=== PATIENT | female | born 1990 | race Caucasian/White ===

== ENCOUNTER 2020-11-14 07:56 | Inpatient (IN) ==
[2020-11-14] MEDS ORDERED: OXYTOCIN 30 UNITS/500 ML BAG IV PRN ×2 (08:58)
--- NOTE | 2020-11-14 08:58 | Labor Progress Brief Note ---
Date of Service November 14, 2020 Subjective Admit for IOL at 38w3d for cHTN not on medication, BP acceptable this AM and without s/sx of PIH. Assessment & Plan (1) Chronic hypertension: IOL for cHTN, start pitocin, AROM when able. Admission and Anticipated Discharge Date Admission Date: November 14, 2020 Physical Exam Physical Exam: /-2 FHT Cat 1 Christine irreg EFW 6-7lb Results & Data ([facility]) Vital Signs (Past 12 Hours) Vital Signs Temp Pulse Resp BP 11/14/20 08:47 95 H 125/83 11/14/20 08:27 107 H 130/87 11/14/20 08:20 98.6 F 107 H 18 130/87 Coding Level of Care Code None Diagnoses Chronic hypertension I10
[2020-11-14] MEDS: LACTATED RINGER'S 1,000 ML IV PRN ×2 (09:30→12:07)
--- NOTE | 2020-11-14 09:41 | History & Physical Report ---
Date of Service November 14, 2020 Assessment & Plan (1) : Isi Newby is a 29yo with cHTN at 38+3 who presents to L&D for IOL for cHTN. * Admit to L&D * IV site in place, labs ordered * Covid negative 11/08/20 * Pitocin per protocol * AROM when indicated * Anticipate * heart tracing: category 1 * BP currently 120/67, patient without signs/symptoms of preeclampsia, continue to monitor (2) Chronic hypertension: Admission and Anticipated Discharge Date Admission Date: November 14, 2020 History of Present Illness Primary Care Provider: Malcolm Dowell Isi Newby is a 29yo at 38+3 who presents to L&D for scheduled IOL for cHTN. She has a history of cHTN with superimposed preeclampsia. Has been taking daily baby aspirin since 12wga. Previously on propranolol and paxil but discontinued these before 12wga. NST yesterday was reactive with accels present, with one decel a/w movement noted. Reports good movement. Denies vaginal bleeding, ROM, leakage of fluid. Patient also denies fever, chills, CP, SOB, nausea, vomiting, lightheadedness, dizziness, headache, RUQ pain, changes in vision, or LE edema. Rh pos / RI / GBS neg / covid neg (11/08/20) Medical Lab Technologist: history of ASCUS in 2014, no STD history Allergies Allergy/AdvReac Type Severity Reaction Status Date / Time diphenhydramine Allergy Unknown Chills and Verified 11/13/20 11:50 anxiety promethazine AdvReac Intermediate JITTERY Verified 11/13/20 11:50 CANT SLEEP tramadol AdvReac Mild anxious Verified 11/13/20 11:50 Home Medications Medication Instructions Recorded Confirmed Type PNV 153-FA 400 mcg-om3 35 mg-dha tab PO 05/09/20 11/13/20 History 25 mg-epa 5 mg-fish oil chew tablet aspirin 81 mg PO DAILY 11/14/20 11/14/20 History Past Med/Surg History Medical History Abnormal Pap smear of cervix Anxiety and depression Chest pain Chronic hypertension Migraine headache (05/04/13) Mild pre-eclampsia, antepartum (12/22/11) Tonsillectomy planned Varicella vaccine Surgical History S/P cholecystectomy 2011 Family History Mother Thyroid disease Other Hypertension Social History (Updated 11/14/20 @ 08:43 by Joan Ocasio) Smoking Status: Former smoker Tobacco Type: Cigarettes Second Hand Exposure: Yes; Do You Dip or Chew Tobacco: No; Hx Alcohol Use: No Hx Substance Use: No Preferred Language: Nepalese Communication Ability: Effective Hearing Ability: Normal 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 Beliefs That Will Affect Care: None marital status: marital status details: Cindy Sherwood (29) [phone] Current Living Situation: Family Current Living Situation Comment: lives with spouse and children, 1 dog current occupational status: employed current occupation: [employer] Feels Safe at Home: Yes Safety Concerns: Feels Safe At This Time Dental Care, Regularly: Yes Do you think of yourself as: straight/heterosexual Assistive Devices: Glasses Review of Systems Review of Systems: see HPI Physical Exam Constitutional: healthy appearing, cooperative and comfortable; no acute distress Respiratory: normal respiratory effort, lungs clear to auscultation Cardiovascular: RRR, no murmur, no edema Gastrointestinal (Abdomen): normal gravid abdomen with heart monitor in place, abdomen soft, nontender Musculoskeletal: calves nontender bilaterally Results & Data Results [facility] ([facility]) Vital Signs (Past 12 Hours) Vital Signs Temp Pulse Resp BP 11/14/20 08:47 95 H 125/83 11/14/20 08:27 107 H 130/87 11/14/20 08:20 37 C 107 H 18 130/87 Resident Activity Tracking Resident Involvement: Resident Care Provided Care Provided: OB Delivery
[2020-11-14 09:52] LABS: Hemoglobin 10.9 g/dL (12.0-16.0); Mean Corpuscular Hemoglobin 29.7 pg (25-34); Mean Corpuscular Volume 89.9 fL (80-100); Mean Platelet Volume 9.8 fL (7.4-10.4); Platelet Count 182 K/uL (130-400); RDW Coefficient of Variation 11.9 % (11.5-14.5); RDW Standard Deviation 38.6 fL (36.4-46.3); Red Blood Count 3.67 M/uL (4.2-5.4); White Blood Count 8.11 K/uL (4.8-10.8)
[2020-11-14] MEDS ORDERED: SODIUM CHLORIDE 0.9% INJ 10 ML VIAL ONE (12:09)
[2020-11-14] MEDS ORDERED: BUPIVACAINE 0.25% 30 ML VIAL ONE (12:09)
[2020-11-14] MEDS ORDERED: ePHEDrine sulfate 50 MG/ML AMP ONE (12:09)
[2020-11-14] MEDS ORDERED: fentaNYL 2MCG/ML ROPIVACAINE 1.25MG/ML 100 ML BAG EPI ONE (12:10)
[2020-11-14] MEDS ORDERED: fentaNYL citrate 100 MCG/2 ML VIAL ONE (12:10)
[2020-11-14] MEDS ORDERED: NALOXONE HCL 1 MG in SODIUM CHLORIDE 0.9% 1000ML 1,000 ML IV PRN (12:17)
[2020-11-14] MEDS ORDERED: fentaNYL 2MCG/ML ROPIVACAINE 1.25MG/ML 100 ML BAG EPI PRN (12:17)
[2020-11-14] MEDS ORDERED: ONDANSETRON INJ 2 MG/ML 2 ML VIAL IV PRN (12:17)
[2020-11-14] MEDS ORDERED: ePHEDrine sulfate 50 MG/ML AMP IV PRN (12:17)
[2020-11-14] MEDS ORDERED: NALOXONE HCL 0.4 MG/1 ML VIAL/CARP IV PRN (12:17)
--- NOTE | 2020-11-14 12:19 | Anesthesiology Consultation ---
Date of Service November 14, 2020 Assessment & Plan (1) Encounter for pre-operative examination: Chart Review Chart Review: Patient NOT seen in Pre Admission Testing and Acceptable Risk for Labor Epidural Consults Requested none History Height/Weight Height: 5 ft 2 in Weight: 57.153 kg Allergies Allergy/AdvReac Type Severity Reaction Status Date / Time diphenhydramine Allergy Unknown Chills and Verified 11/13/20 11:50 anxiety promethazine AdvReac Intermediate JITTERY Verified 11/13/20 11:50 CANT SLEEP tramadol AdvReac Mild anxious Verified 11/13/20 11:50 Medications Home Medications Medication Instructions Recorded Confirmed Last Taken PNV 153-FA 400 mcg-om3 35 mg-dha tab PO 05/09/20 11/13/20 11/14/20 25 mg-epa 5 mg-fish oil chew tablet aspirin 81 mg PO DAILY 11/14/20 11/14/20 11/10/20 Active Medications Generic Name Dose Route Start Last Admin Trade Name Freq PRN Reason Stop Dose Admin Lactated Ringer's 1,000 mls @ 125 mls/hr 11/14/20 08:58 11/14/20 12:07 Lr IV 11/16/20 08:57 125 mls/hr .Q8H PRN Administration L&D Protocol Protocol Oxytocin 30 units in 500 mls @ 3 mls/hr 11/14/20 08:58 11/14/20 10:30 Pitocin IV 11/16/20 08:57 0.18 units/hr .Q24H PRN 3 mls/hr Labor Induction/Augmentation Titration Protocol 0.18 UNITS/HR Past Medical History Medical History (Updated 11/14/20 @ 12:18 by Florentin Brandon MD) Abnormal Pap smear of cervix Anxiety and depression Chest pain Chronic hypertension Migraine headache (05/04/13) Mild pre-eclampsia, antepartum (12/22/11) Tonsillectomy planned Varicella vaccine Exercise / Class Metabolic Activity II 4-5 Yardwork/Stairs/Walk up hill Past Family History Family History Mother Thyroid disease Other Hypertension Past Surgical History Surgical History S/P cholecystectomy 2011 Past Anesthesia History No Hx of Anesthesia Complications and No Family Hx of Anesthesia Complications History of PONV No Hx of PONV and No Hx of Motion Sickness Social History Smoking Status: Former smoker Do You Dip or Chew Tobacco: No Hx Alcohol Use: No Hx Substance Use: No substance use type: does not use Physical Exam Vital Signs Last Vital Signs Temp 36.8 C 11/14/20 12:02 Pulse 107 H 11/14/20 12:34 Resp 18 11/14/20 12:02 BP 133/68 11/14/20 12:34 Pulse Ox 97 11/14/20 12:34 Testing Laboratory Results 11/14/20 09:09
--- NOTE | 2020-11-14 13:59 | Labor Progress Brief Note ---
Date of Service November 14, 2020 Subjective Now comfortable with epidural except for L abdomen hot spot; currently L lateral hoping to fix that. Assessment & Plan (1) Chronic hypertension: Continue IOL. Admission and Anticipated Discharge Date Admission Date: November 14, 2020 Physical Exam Physical Exam: /-1 to 0 FHT Cat 1 [place] Q2 Pit @ 3 Results & Data ([facility]) Vital Signs (Past 12 Hours) Vital Signs Temp Pulse Resp BP Pulse Ox Pulse Ox 11/14/20 13:55 94 H 124/63 11/14/20 13:54 103 H 100 11/14/20 13:52 109 H 128/61 11/14/20 13:49 111 H 100 11/14/20 13:46 105 H 125/76 11/14/20 13:44 98 H 100 11/14/20 13:43 103 H 126/73 11/14/20 13:40 92 H 119/69 11/14/20 13:39 101 H 100 11/14/20 13:37 93 H 122/68 11/14/20 13:34 92 H 118/64 100 11/14/20 13:31 105 H 114/64 11/14/20 13:29 88 100 11/14/20 13:28 87 116/66 11/14/20 13:25 94 H 115/64 11/14/20 13:24 93 H 100 11/14/20 13:22 85 126/68 11/14/20 13:19 103 H 122/70 99 11/14/20 13:16 100 H 122/69 11/14/20 13:14 91 H 100 11/14/20 13:13 100 H 119/67 11/14/20 13:10 93 H 124/68 11/14/20 13:09 97 H 100 11/14/20 13:07 102 H 123/62 11/14/20 13:04 99 H 126/68 100 11/14/20 13:01 108 H 141/80 H 11/14/20 12:59 115 H 98 11/14/20 12:58 100 H 132/77 11/14/20 12:55 104 H 139/81 11/14/20 12:54 103 H 99 11/14/20 12:52 113 H 141/93 H 11/14/20 12:49 100 H 139/82 99 11/14/20 12:46 102 H 144/85 H 11/14/20 12:44 110 H 98 11/14/20 12:43 105 H 137/85 11/14/20 12:40 100 H 143/86 H 11/14/20 12:39 98 H 98 11/14/20 12:37 108 H 143/79 H 11/14/20 12:34 107 H 133/68 97 11/14/20 12:31 98 H 131/91 11/14/20 12:29 102 H 97 11/14/20 12:28 98 11/14/20 12:25 111 H 145/108 H 11/14/20 12:24 101 H 98 11/14/20 12:19 93 H 98 11/14/20 12:16 88 138/79 11/14/20 12:14 93 H 97 11/14/20 12:09 97 H 98 11/14/20 12:04 95 H 99 11/14/20 12:02 98.2 F 18 11/14/20 10:00 18 11/14/20 09:16 103 H 120/67 11/14/20 09:06 100 H 116/65 11/14/20 09:00 18 11/14/20 08:57 102 H 124/73 11/14/20 08:47 95 H 125/83 11/14/20 08:27 107 H 130/87 11/14/20 08:20 98.6 F 107 H 18 130/87 11/14/20 07:58 98.6 F 18 Coding Level of Care Code None Diagnoses Chronic hypertension I10
[2020-11-14] MEDS ORDERED: ACETAMINOPHEN 325 MG TAB PO PRN (15:45)
--- NOTE | 2020-11-14 16:55 | Delivery Summary ---
Vaginal Delivery Summary Date of Service November 14, 2020 Vaginal Delivery Summary DIAGNOSES: 1. Ramires intrauterine at 38w3d gestation. 2. Induction of labor due to Chronic Hypertension affecting . 3. Group B Streptococcus Neg. PROCEDURE: Spontaneous vaginal delivery without laceration. SURGEON: Wendy Johnson MD. BANK VAULT CLERK: None. ESTIMATED BLOOD LOSS: 250 mL. COMPLICATIONS: None. PLACENTA: Spontaneous and intact with a 3-vessel cord. DISPOSITION: Stable to labor and delivery. DESCRIPTION: The patient pushed well and brought the head to in OA position. The 's head was allowed to deliver with contraction force and no further active pushing, with the perineum protected during this time. The shoulders delivered easily with a maternal pushing effort. There was no nuchal cord. The right shoulder was anterior. The shoulders and body delivered without any difficulty, and the was placed on the maternal abdomen. It was vigorous and moving all extremities, and making respiratory efforts. Apgars were ultimately assigned as 9 and 10. The cord was doubly clamped by the MD and then cut by the FOB. The placenta delivered spontaneously and was noted to be intact and with a 3VC. The cervix, vagina and perineum were examined and were found to be without defect requiring repair. The fundus was firm and lochia minimal immediately after delivery. [facility] Vaginal Delivery Charge Vaginal Delivery Codes: 77721 global code for the antepartum, delivery, and post-
[2020-11-14] MEDS ORDERED: IBUPROFEN 600 MG TAB PO ONE (17:17)
--- NOTE | 2020-11-14 18:00 | Anesthesia Procedure Note ---
Date of Service November 14, 2020 Anesthesia Post Epidural Note Vital Signs Vital Signs: Temp Pulse Resp BP Pulse Ox 37.3 C 94 H 18 142/75 H 97 11/14/20 15:35 11/14/20 17:52 11/14/20 15:35 11/14/20 17:52 11/14/20 16:44 Pain Intensity Lower Abdomen: Pain Intensity: 0 Left Hip: Pain Intensity: 1 Notes Mental Status: alert / awake / arousable and participated in evaluation Nausea / Vomiting: adequately controlled Pain: adequately controlled Airway Patency, RR, SpO2: stable & adequate BP & HR: stable & adequate Hydration State: stable & adequate Neuraxial Anesthesia: was administered and sensory block is resolving Anesthetic Complications: no major complications apparent and Pt Satisfied with anesthetic care Epidural: Removed without complications and With tip intact
[2020-11-14] MEDS ORDERED: DIPHTHERIA/TETANUS/PERTUSSIS 0.5 ML SYR/VIAL IM ONE (18:40)
[2020-11-14] MEDS ORDERED: HYDROCORTISONE ACETATE 25 MG SUPP PR PRN (18:40)
[2020-11-14] MEDS ORDERED: BENZOCAINE 20% AER SPR 82.5 GM CAN EXT PRN (18:40)
[2020-11-14] MEDS ORDERED: oxyCODONE/ACETAMINOPHEN 5mg/325mg TAB PO PRN (18:40)
[2020-11-14] MEDS ORDERED: SUPERCREAM 0.870% 15 GM JAR EXT PRN (18:40)
[2020-11-14] MEDS: ACETAMINOPHEN 325 MG TAB PO PRN (19:43)
[2020-11-14] MEDS: DOCUSATE SODIUM 100 MG CAP PO SCH (20:38)
[2020-11-14] MEDS: IBUPROFEN 600 MG TAB PO PRN (23:23)
[2020-11-15] MEDS: IBUPROFEN 600 MG TAB PO PRN ×3 (04:33→15:09)
[2020-11-15] MEDS: ACETAMINOPHEN 325 MG TAB PO PRN ×3 (05:43→18:25)
--- NOTE | 2020-11-15 06:26 | Obstetrical Progress Note ---
Date of Service <Chris Bean MD - Last Filed: 11/15/20 07:12> November 15, 2020 Assessment & Plan <Chris Bean MD - Last Filed: 11/15/20 07:12> (1) : A/P: Isi Newby is a 29 y/o female with cHTN on PPD#1 following IOL at 38+3 weeks. * Patient feels well today; eating well, voiding well, ambulating well * BP controlled since yesterday evening; continue to monitor for s/sx preeclampsia * Pain well-controlled with ibuprofen 600mg q4h prn * PNL: Rh pos, RI, GBS neg, COVID neg * Routine care: OOB, ambulation, diet progression as tolerated * After discharge, will have six-week follow-up with Dr. Johnson Subjective <Chris Bean MD - Last Filed: 11/15/20 07:12> Isi Newby is a 29 y/o female with cHTN on PPD#1 following IOL at 38+3 weeks. She reports feeling well overall this morning. Moderate abdominal cramping and 5/10 pain, although this is improving as she just took another dose of tylenol. Voiding well. Tolerating meals overnight without difficulty. Patient has been able to ambulate some. Patient does note an episode yesterday of spots in her vision while she was laying in bed; this was brief and was not accompanied by headache, SOB, RUQ pain, swelling, CP, palpitations, or other notable symptoms. Has persistent lochia with some improvement this morning. Review of Systems Denies fever or chills. Denies shortness of breath or cough. Denies chest pain. Denies breast pain. Denies dysuria. Denies leg pain or leg swelling. Denies headache. Physical Exam <Chris Bean MD - Last Filed: 11/15/20 07:12> General: alert, oriented, no acute distress Cardiac: regular rate and rhythm, no murmurs appreciated Respiratory: lungs clear to auscultation bilaterally a/p, no wheezes/rales/rhonchi, no increased work of breathing, symmetrical chest rise, no respiratory distress Abdomen: soft, mildly tender, nondistended, bowel sounds present Uterus: uterine fundus firm, palpable 5 cm below umbilicus Lower extremities: no lower extremity edema or swelling, no deep calf pain, Broderick's negative bilaterally Results & Data ([facility]) <Chris Bean MD - Last Filed: 11/15/20 07:12> Vital Signs (Past 12 Hours) Vital Signs Temp Pulse Pulse Pulse Resp BP BP 11/15/20 04:15 36.8 C 94 H 16 128/81 11/14/20 23:30 36.8 C 85 18 134/87 11/14/20 20:17 36.8 C 100 H 16 123/80 11/14/20 19:20 36.8 C 18 11/14/20 19:16 109 H 130/81 Pulse Ox 11/15/20 04:15 11/14/20 23:30 11/14/20 20:17 97 11/14/20 19:20 11/14/20 19:16 <Wendy Johnson MD - Last Filed: 11/15/20 07:13> Co-Signing Physician Notes Resident Physician Supervision Note: I interviewed and examined the patient. Discussed with Dr. Hermosillo and agree with findings and plan as documented in the note. Any exceptions or clarifications are listed here: Uterine cramping controlled with NSAIDs this morning. Discussed typical for cramping with uterine involution to be exacerbated by milk letdown / nursing, and common for this pain to be more severe with second and subsequent births than with the first one. Signs to watch for including fever, pain that is constant, worsening, or not improved by NSAIDs, and foul smelling discharge, reviewed with patient. Comfortable at this time after tylenol given this morning. Documented By: Wendy Johnson MD, FACOG Resident Activity Tracking <Chris Bean MD - Last Filed: 11/15/20 07:12> Resident Involvement: Resident Care Provided Care Provided: OB Delivery
[2020-11-15 06:36] LABS: Hematocrit (blood only) 30.1 % (37-47); Hemoglobin 10.1 g/dL (12.0-16.0); Mean Corpuscular Hemoglobin 30.1 pg (25-34); Mean Corpuscular Hgb Conc 33.6 g/dL (32-36); Mean Corpuscular Volume 89.6 fL (80-100); Mean Platelet Volume 9.9 fL (7.4-10.4); Platelet Count 152 K/uL (130-400); RDW Coefficient of Variation 12.2 % (11.5-14.5); RDW Standard Deviation 39.6 fL (36.4-46.3); Red Blood Count 3.36 M/uL (4.2-5.4); White Blood Count 8.78 K/uL (4.8-10.8)
[2020-11-15] MEDS ORDERED: PRENATAL VITAMIN 1 TAB PO SCH (08:00)
[2020-11-15] MEDS: DOCUSATE SODIUM 100 MG CAP PO SCH (08:47)
[2020-11-15] MEDS ORDERED: SERTRALINE HCL 50 MG TABLET PO SCH (09:00)
== END 2020-11-15 18:55 | disposition home or self-care (01) | DRG 807 ==
LOC: 4S1 07:56 → 4S2 19:35